=== PATIENT | female | born 1970 | race Caucasian/White ===

== ENCOUNTER 2018-02-11 09:55 | Day surgery (SDC) | payer BC, OTHER ==
[2018-02-09 16:37] VITALS: BMI 29.0
[2018-02-11] MEDS ORDERED: BUPIVACAINE HCL/PF 2.5 MG/ML - 30 ML VIAL IJ ONE (10:16)
[2018-02-11] MEDS ORDERED: ceFAZolin SODIUM 1 GM VIAL ONE (12:41)
[2018-02-11] MEDS ORDERED: PROPOFOL 20 ML ONE (12:41)
[2018-02-11] MEDS ORDERED: DEXAMETHASONE SOD PHOSPHATE 4 MG/1 ML VIAL ONE (12:41)
[2018-02-11] MEDS ORDERED: LIDOCAINE HCL/PF 2% SDV 5ML VIAL ONE (12:41)
[2018-02-11] MEDS ORDERED: MIDAZOLAM HCL 2 MG/2 ML SINGLE DOSE VIAL ONE (12:41)
[2018-02-11] MEDS ORDERED: ONDANSETRON 4 MG/2 ML VIAL ONE ×2 (12:41→14:31)
[2018-02-11] MEDS ORDERED: KETOROLAC TROMETHAMINE 30 MG/1 ML VIAL ONE (13:07)
[2018-02-11] MEDS ORDERED: methylPREDNISolone ACET (DEPO) 40 MG/1 ML VIAL ONE (13:10)
[2018-02-11] MEDS ORDERED: oxyCODONE HCL 5 MG TABLET PO PRN ×2 (13:40)
[2018-02-11] MEDS ORDERED: ONDANSETRON 4 MG/2 ML VIAL IVPUSH PRN (13:40)
[2018-02-11] MEDS ORDERED: LACTATED RINGERS SOLUTION 1,000 ML IV SCH (13:45)
--- NOTE | 2018-02-11 14:12 | OP ---
Operative Note - Note: Operative Date: 02/11/18 Pre-Operative Diagnosis: Right knee internal derrangement medial meniscus Operation: Surgical arthroscopy right knee. 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
--- NOTE | 2018-02-11 14:12 | PN ---
Progress Note (short form) - Note Progress Note: 47F s/p SARK w/MFC chondroplasty POD #0. -Pain control. -WBAT RLE. -f/u post-op trial of void. -Diet as tolerated. -Keep dressing clean & dry; d/c on Wednesday & place waterproof Band-Aids over incision sites. -Cane vs crutches. -f/u [facility] [place] office 02/18/2018; call for appointment; . Lc Florian MD (Orthopaedic Surgery).
[2018-02-11 15:36] VITALS: BP 123/80; PULSE 67; TEMP 97.6
--- NOTE | 2018-02-14 09:29 | OP ---
Date of Operation: 02/11/2018 Pre-Operative Diagnosis: Internal derangement right medial meniscus Post-Operative Diagnosis: 1. Chondromalacia with bone exposed: patella, trochlear sulcus, medial femoral condyle. 2. Chondromalacia of the medial tibial plateau (fissures; no bone exposed). 3. No discrete medial meniscus tear. 4. Degenerative anterior cruciate ligament. Surgical Procedure: 1. Surgical arthroscopy right knee 2. Right knee medial femoral condyle chondroplasty 3. Irrigation 4. Debridement. 5. Intra-Articular Injection: 6mL of 0.25% Marcaine with 2mL of Depo-Medrol ( 40 mg/mL). Anesthesia: General (LMA). Position: Supine. Incision: Standard anteromedial & anterolateral knee arthroscopy portals. Tourniquet Pressure: 400mmHg. Tourniquet Time: 29 minutes. Estimated Blood Loss: 0cc. Intravenous Fluid: 500cc. Specimens: None. Drains: None. Complications: None. Urine Output: None. Bacteriology: None. Transfusions: None. Closure: 3-0 Nylon. Indications: The patient was indicated for a surgical arthroscopy of the right knee with possible partial medial meniscectomy to facilitate improved motion and mobilization, and to prevent complications associated with a sedentary lifestyle. The patient was identified in the holding area by her armband. A long discussion was held with the patient regarding the risks, benefits and alternatives of the above-named procedure. Risks include but are not limited to : pain, bleeding, infection, damage to surrounding structures (including nerves , blood vessels, skin, ligaments, tendons and bone), wound complications, need for further surgery, blood clots, myocardial infarction, pulmonary embolism, anaesthesia complications, compartment syndrome, limb loss, limp, loss of function, and . Benefits as mentioned above. Alternatives include no surgery. All questions were answered. The patient and her family understood and agreed to the procedure. Informed consent was obtained, witnessed and verified. The patients correct operative limb - the right lower extremity - was marked, and the patient was taken to the operating room after being seen by the anesthesia and nursing staff. Procedure: The patient was brought into the operating room, placed on the OR table and secured with a safety strap. Consent and the operative site was again verified with the patient and nursing and anaesthesia staff. Anaesthesia was then administered without complication. 2g IV Ancef was administered. A time out was done led by , the attending surgeon. The patient was positioned with all bony prominences well padded. A tourniquet was placed proximally on the right thigh and set to 400mmHg and the thigh was then secured in an arthroscopic leg-bear. The operative limb was prepped in standard sterile fashion using betadine prep & scrub, wiped off with alcohol, and then DuraPrep applied. The operative limb was then free draped. Time out was again done, the limb was exsanguinated using an Esmarch, the tourniquet was inflated, and the case began. Surface anatomy of the knee was drawn, marking the patella, patellar tendon, and medial & lateral joint lines. With the knee flexed to 45 degrees, a standard anterolateral arthroscopy portal was made using an 11 blade. A blunt trocar was then inserted into the knee at the same angle as the incision. The blunt trocar was then slipped into the suprapatellar pouch as the knee was slowly extended. The trocar was removed through its overlying canula, and the arthroscope was inserted in its place. The fluid inflow, which had already been primed, was then attached to the canula along with the outflow suction tubing. The knee was then insufflated with normal saline solution containing epinephrine. The suprapatellar pouch was then inspected with no evidence of synovitis. The medial & lateral retro-patellar surfaces revealed chondromalacia with bone exposed. The trochlear groove demonstrated extensive damage and chondromalacia, also with bone exposed. The patellofemoral articulation appeared otherwise normal. Next, the arthroscope was delivered into the medial gutter of the knee as the knee was slowly flexed. No loose bodies were seen. With gentle valgus force applied to the knee, the arthroscope was slipped into the medial compartment. The medial femoral condyle demonstrated extensive chondromalacia with bone exposed. Chondromalacia of the medial tibial plateau with deep fissures and no obviously exposed subchondral bone was evident. A loose chondral flap measuring 2-3mm in width was identified adjacent to an area of deficient cartilage. The medial meniscus appeared intact. Next, an 18-gauge spinal needle was used to plan an anteromedial portal. With the correct position and working trajectory verified, the spinal needle was removed, and an 11 blade was utilized to create a standard anteromedial arthroscopy portal. A blunt trocar was then inserted via the anteromedial portal into the medial compartment of the knee under direct arthroscopic visualization via the anterolateral portal. A probe was inserted via the anteromedial portal demonstrating the instability of the chondral flap on the medial femoral condyle. The probe was used to demonstrate the stability of the medial meniscus, and the absence of a meniscal tear. The meniscal root and capsular attachments were intact, as also determined by the probe. The probe was used to inspect the superior and inferior surfaces of the medial meniscus and no derangement was identified. A motorized 3.5mm shaver was then inserted via the anteromedial portal the macerated chondral flap overlying the medial femoral condyle was gently trimmed back to a stable peripheral rim. Next, the arthroscope was delivered into the intercondylar notch. The ACL was visualized and appeared degenerative. The probe was used to demonstrate the ACLs stability. The PCL was not visualized. Gentle varus stress was applied to the knee but the lateral compartment of the knee was too tight to enter with the arthroscope. The arthroscope was then delivered into the lateral gutter of the knee where no loose bodies were seen. The arthroscope was then returned to the suprapatellar pouch as the knee was gently extended. The knee was irrigated with 2-3L of normal saline solution. Intra-operative photographs were captured using the arthroscope at numerous steps throughout the case. An intra-articular injection consisting of 6mL of 0.25% Marcaine with 2mL of Depo-Medrol (40 mg/mL) was injected into the knee. Hemostasis was assured, and the wounds were closed primarily using 3-0 nylon sutures in figure-8 fashion. Xeroform and a sterile, compressive dressing was applied. The tourniquet was released at a final time of 29 minutes. The sponge and needle counts were correct at the end of the case and I the attending was present and scrubbed throughout the case. The patient was then transferred to the recovery room in stable condition, as per the anesthesiology team, having tolerated the procedure well. MD VIANEY Thurston/[id number] MTDD
== END 2018-02-11 15:30 | disposition home or self-care (01) ==
LOC: FASU 09:55
PROVIDERS: ATTEND Orthopaedic Surgery Adult Reconstructive Orthopaedic Surgery
PROC: 0SBC4ZZ Excision of Right Knee Joint, Percutaneous Endoscopic Approach (ICD-10-PCS; principal; 2018-02-11 11:45)
DX: M22.41 Chondromalacia patellae, right knee (principal); M23.611 Other spontaneous disruption of anterior cruciate ligament of right knee
CPT/HCPCS: 84703